=== PATIENT | male | born 1945 | race Caucasian/White ===

== ENCOUNTER → 2017-07-20 | Outpatient (CLI) | payer MEDICARE ==
[2017-07-20 14:57] LABS: Albumin 4.7 g/dL (3.5-5.0); Calcium 10.2 mg/dL (8.4-10.2); Potassium 4.9 mmol/L (3.5-5.1); Total Bilirubin 0.5 mg/dL (0.2-1.3); Total Protein 8.6 g/dL (6.3-8.2)
[2017-07-20 15:12] LABS: T4, Free (Free Thyroxine) 1.41 ng/dL (0.78-2.19)
[2017-07-20 22:09] LABS: ACTH 29.1 pg/mL (0.00-45.99)
== END | disposition home or self-care (01) ==
LOC: LABWHC1 14:28
PROVIDERS: ATTEND Internal Medicine Endocrinology, Diabetes & Metabolism
DX: I95.1 Orthostatic hypotension (principal); R53.83 Other fatigue
CPT/HCPCS: 36415; 80053; 82024; 82533; 84146; 84402; 84439; 84443; 84480